=== PATIENT | female | born 1990 ===

== ENCOUNTER → 2017-07-20 | Outpatient (CLI) | payer OTHER ==
[2017-07-20 17:50] LABS: BASO % 0.8 %; BASO ABS # 0.06 K/uL (0-0.2); EOS % 4.5 %; EOS ABS # 0.36 K/uL (0-0.5); HEMATOCRIT 39.9 % (37-47); HEMOGLOBIN 13.8 g/dL (12.0-16.0); IG# 0.03 K/uL (0.00-0.02); LYMPH % 26.9 %; LYMPH ABS # 2.15 K/uL (1.2-3.4); MEAN CELL VOLUME 84.7 fL (80-100); MEAN CORPUSCULAR HEMOGLOBIN 29.3 pg (25-34); MEAN CORPUSCULAR HGB CONC 34.6 g/dl (32-36); MEAN PLATELET VOLUME 8.8 fL (7.4-10.4); MONO % 8.3 %; MONO ABS # 0.66 K/uL (0.11-0.59); NEUT % 59.1 %; NEUT ABS # 4.73 K/uL (1.4-6.5); PLATELET COUNT 341 K/uL (130-400); RED CELL DISTRIBUTION WIDTH CV 13.1 % (11.5-14.5); RED CELL DISTRIBUTION WIDTH SD 40.4 fL (36.4-46.3); WHITE BLOOD COUNT 7.99 K/uL (4.8-10.8)
== END | disposition home or self-care (01) ==
LOC: C.LABMFLN 11:49
PROVIDERS: ATTEND Family Medicine
DX: R53.81 Other malaise (principal); R53.82 Chronic fatigue, unspecified